=== PATIENT | male | born 1960 | race Caucasian/White ===

== ENCOUNTER → 2016-11-01 | Day surgery (SDC) | payer OTHER ==
[~2016-11-01] VITALS: Ht 188 cm; Wt 93.0 kg
[~2016-11-01] MED LIST: INDOMETHACIN50 MG PO; PERCOCET 5-3251 EACH PO; PREDNISONE 10MG10 M1 PO; XANAX0.5 M1 PO
--- NOTE | 2016-11-02 16:22 | Operative Report ---
Operative/Inv Procedure Report Surgery Date: 11/01/16 Name of Procedure: Large left hydrocelectomy Pre-Operative Diagnosis: Large left hydrocele Post-Operative Diagnosis: Same Estimated Blood Loss: 50ml to 100ml Surgeon/Cottage Attendant: BEATRICE SYLVESTER MD Anesthesia: laryngeal mask airway, block, left scrotal/cord block with 2% Lidocaine-no epi. Drains: Quarter-inch [place] in the deep dependent portion of the incision. Specimens: Left hydrocele sac Complications: None Condition: Improved Operative/Procedure Note Note: The patient was taken to the operating room and placed in the OR table in supine position. With the patient awake, timeout was performed in order to confirm correct identity, laterality, antibiotics, anesthesia, and other pertinent perioperative information. After adequate anesthesia and IV antibiotics, the patient was frog legged and draped and prepped in the usual surgical fashion. Local anesthesia was used to infiltrate the midline scrotal raphae. A 3 cm incision was made along the lower portion of the midline raphae in order to expose the detrusor fascia. Incision was carried out through the detrusor fascia towards the left side using coag current. The right scrotum was entered and the incision was spot cauterized in order to confirm good hemostasis. The left testicle was then extruded through the incision without significant difficulty. A was examined and noted to have no significant pathology. On the posterior-superior portion of the testicle, a loculated hydrocele was noted. The hydrocele was opened/marsupialized, and 20 mL of clear fluid was drained. The hydrocele sac was excised using Bovie cautery approximiately 1cm from the cord and testicle, and sent to pathology. The incised edge of the hydrocele, remaining on the cord and testicle, was suture ligated using 2-0 Vicryl running stitches. Copious irrigation was performed, and no significant bleeding was noted. The right testicle was then replaced into the right scrotum in its anatomic position. The detrusor fascia was then reapproximated using 2-0 Vicryl running suture. The skin was then closed using 0-Vicryl suture in a vertical mattress fashion. All sponge needle and instrument count were correct at the end of the case. Copious amounts of bacitracin and fluff gauze was placed on the incision. Scrotal support was placed on the patient as well as ice packs. The patient tolerated the procedure well, was extubated, and taken to the recovery room in satisfactory condition. He is to be discharged home with pain medication and antibiotics, and follow-up visit in 2 weeks' time. Findings: 350cc clear yellow fluid drained. Discharge Disposition: Same Day Admissions Additional Comments: f/u in 1 days for check on drainage. CC: BEATRICE SYLVESTER MD
== END ==
LOC: STS 02:17
DX: N43.3 Hydrocele, unspecified (principal); F17.200 Nicotine dependence, unspecified, uncomplicated
CPT/HCPCS: J2001; J2250

== ENCOUNTER 2017-07-23 21:38 | Emergency (ER) | payer OTHER ==
[2017-07-23 23:00] VITALS: BP 118/76
--- NOTE | 2017-07-23 23:11 | ED INFLUENZA/URI COMPLAINT ---
History of Present Illness General Chief Complaint: General Adult Stated Complaint: "I WANT TO BE SWABBED FOR THE FLU AND LEAVE" Source: patient, old records Exam Limitations: no limitations Vital Signs & Intake/Output Vital Signs & Intake/Output Vital Signs Date Time Temp Pulse Resp B/P B/P Pulse O2 O2 Flow FiO2 Mean Ox Delivery Rate 07/23 2300 98.2 89 18 118/76 97 07/23 2214 98.7 97 20 115/78 96 Room Air ED Intake and Output 07/24 0000 07/23 1200 Intake Total 0 Output Total Balance 0 Intake, Oral 0 Patient 0 lb Weight Allergies Coded Allergies: MDX - Bee Venom (Bee Venom) (UNKNOWN 10/23/13) Reconcile Medications Alprazolam (Xanax) 0.5 MG TABLET 1 TAB PO BIDP PRN anxiety (Reported) Oxycodone HCl/Acetaminophen (Percocet 5-325 MG Tablet) 5 MG-325 MG TABLET 1 TAB PO 4 TIMES/DAY pain (Reported) Triage Note: TO ED C/O COUGH, SINUS CONGESTION, RUNNY NOSE, BODY ACHES, CHILLS. DENIES FEVERS Triage Nurses Notes Reviewed? yes Onset: Abrupt Duration: day(s): (1), constant Timing: recent history Severity: mild Severity Numbers: 4 Prior Episodes/Possible Cause: no prior episodes No Modifying Factors: none Associated Symptoms: denies HPI: 56-year-old male presents to the ER for evaluation complaining of body aches rhinorrhea congestion nonproductive cough sore throat since this morning. No sick contacts. He has not taken anything for his symptoms he states he is here just for a flu swab because his wanted him to be checked. No abdominal pain nausea vomiting diarrhea. He smokes cigars no chest pain abdominal pain ([place] Jiang) Past History Travel History Traveled to [place] past 21 day No Medical History Any Pertinent Medical History? see below for history Musculoskeletal: chronic back pain, gout Surgical History Surgical History: none Psychosocial History What is your primary language Serbian Tobacco Use: Current Not Daily ETOH Use: occasional use Illicit Drug Use: denies illicit drug use Family History Hx Contributory? No ([place] Jiang) Review of Systems Review of Systems Constitutional: Reports: see HPI. Comments Review of systems: See HPI, All other systems negative. Constitutional, no chills no fever, HEENT: no sore throat congestion, no ear pain Cardiovascular: No chest pain , Skin: no rashes, no change in skin Respiratory: No dyspnea, (+) cough no sputum no hemoptysis GI: No nausea no vomiting, no diarrhea Muscle skeletal: No joint pain, no back pain Neurologic: , no headache Heme/endocrine: No bruising ([place] Jiang) Physical Exam Physical Exam General Appearance: well developed/nourished, no apparent distress, alert, awake Ears, Nose, Throat: normal ENT inspection, moist mucous membrane, hearing grossly normal Comments: Well-developed well-nourished patient in no apparent distress. Head/Face: Atraumatic, no maxillary/frontal sinus tenderness, no facial swelling Eyes: PERRL, EOMI, no conjunctival injection. No nystagmus Ear:External auditory canal and Tympanic membranes clear, no erythema, no FB. Nose: atraumatic.Normal inspection: No bleeding, no septal hematoma Throat: Moist mucous membranes.Pharynx normal. No pharyngeal erythema/exudate seen. No stridor/drooling or assymetry. No swelling or edema. Neck: Supple, FROM Back: FROM Cardiovascular: Regular rate and rhythms no murmur Respiratory: No respiratory distress. Patient speaking in full complete sentences. Breath sounds clear to auscultation bilaterally: NO W/R/R Extremities: full range of motion Neuro: awake, alert, and oriented to person, place and time. There were no obvious focal neurologic abnormalities. Skin: Warm & dry;No appreciable rash on exposed skin Psych: Mood affect normal, normal memory normal judgment. Core Measures Sepsis Present: No Sepsis Focused Exam Completed? No ([place] Jiang) Progress Differential Diagnosis: influenza, otitis, pneumonia, pharyngitis, sinusitis Plan of Care: Orders Procedure Date/time Status RAPID VIRAL INFLUENZA A 07/23 2145 Complete Microbiology 07/24 2211 NASOPHARYN: Influenza Virus A & B Rapid Smear - COMP Patient is nontoxic-appearing and afebrile. Discussed with him plan of care. Discussed with him his results I do not believe he warrants antibiotics at this time given symptoms have been present for less than 24 hours he is afebrile and otherwise well-appearing he feels comfortable with this plan as well cleared for discharge Initial ED EKG: none ([place] Jiang) Departure Departure Time of Disposition: 2314 Disposition: HOME OR SELF CARE Condition: Stable Clinical Impression Primary Impression: URI (upper respiratory infection) Referrals: Michaelle De La O MD (PCP/Family) Additional Instructions: Rest, and to change Tylenol Motrin drink plenty fluids. Follow-up with your primary care physician return with any concerns. Departure Forms: Customer Survey General Discharge Information (Bubba GAMINO,[place]) PA/CLIENT SERVICE MANAGER Co-Sign Statement Statement: ED Attending supervision documentation- [] I saw and evaluated the patient. I have also reviewed all the pertinent lab results and diagnostic results. I agree with the findings and the plan of care as documented in the PA's/CLIENT SERVICE MANAGER's documentation. [x] I have reviewed the ED Record and agree with the PA's/CLIENT SERVICE MANAGER's documentation. [] Additions or exceptions (if any) to the PAs/CLIENT SERVICE MANAGER's note and plan are summarized below: [] (Jim QUICK,Ata Lopez)
== END 2017-07-23 23:27 ==
LOC: ERH 21:38
DX: J06.9 Acute upper respiratory infection, unspecified (principal); F17.290 Nicotine dependence, other tobacco product, uncomplicated
CPT/HCPCS: 87804; 87804-59